=== PATIENT | female | born 1970 | race Caucasian/White ===

== ENCOUNTER 2017-12-06 15:37 | Observation (INO) | payer OTHER ==
--- OUTSIDE RECORDS SUMMARY | 2017-12-06 16:05 | XMS REPORT | Clinical Summary ---
:1970 Author Organization [facility] Address [address] [place] [address] Care Team Providers Name Role Phone Carl Celis MD Primary Care Provider Allergies Not on File Current Medications Prescription Sig. Disp. Refills Start Date End Date Status levothyroxine Take 88 mcg Active (SYNTHROID, LEVOXYL) by mouth 88 mcg tablet every morning. venlafaxine Take 75 mg Active (EFFEXOR) 75 MG by mouth 2 tablet (two) times a day. lansoprazole Take 15 mg Active (PREVACID) 15 MG by mouth capsule daily. sulfaSALAzine TAKE 1 120 tablet 0 11/21/2017 12/21/2017 Active (AZULFIDINE) 500 mg TABLET(500 tablet MG) BY MOUTH FOUR TIMES DAILY sulfaSALAzine TAKE 1 120 tablet 0 11/13/2016 12/11/2016 Discontinued (AZULFIDINE) 500 mg TABLET(500 tablet MG) BY MOUTH FOUR TIMES DAILY sulfaSALAzine TAKE 1 120 tablet 0 12/13/2016 01/20/2017 Discontinued (AZULFIDINE) 500 mg TABLET(500 tablet MG) BY MOUTH FOUR TIMES DAILY sulfaSALAzine TAKE 1 120 tablet 0 01/20/2017 02/20/2017 Discontinued (AZULFIDINE) 500 mg TABLET(500 tablet MG) BY MOUTH FOUR TIMES DAILY sulfaSALAzine TAKE 1 120 tablet 0 02/20/2017 09/27/2017 Discontinued (AZULFIDINE) 500 mg TABLET(500 tablet MG) BY MOUTH FOUR TIMES DAILY sulfaSALAzine TAKE 1 120 tablet 0 09/27/2017 10/23/2017 Discontinued (AZULFIDINE) 500 mg TABLET(500 tablet MG) BY MOUTH FOUR TIMES DAILY sulfaSALAzine TAKE 1 120 tablet 0 10/24/2017 11/21/2017 Discontinued (AZULFIDINE) 500 mg TABLET(500 tablet MG) BY MOUTH FOUR TIMES DAILY Active Problems Not on file Encounters Date Type Specialty Care Team Description 11/21/2017 Refill Gastroenterology Chandler Syed MD 10/23/2017 Refill Gastroenterology Chandler Syed MD 09/27/2017 Refill GastroenterChandler Martinez MD 02/20/2017 Refill GastroenterChandler Martinez MD 01/20/2017 Refill Gastroenterology Chandler Syed MD 12/11/2016 Refill Gastroenterology Chandler Syed MD after 12/05/2016 Family History Medical History Relation Name Comments Ulcerative colitis Father Colon cancer Paternal Grandfather Relation Name Status Comments Father Paternal Grandfather Social History Tobacco Use Types Packs/Day Years Used Date Never Smoker Alcohol Use Drinks/Week oz/Week Comments Defer Sex Assigned at Date Recorded Not on file Last Filed Vital Signs Not on file Plan of Treatment Health Maintenance Due Date Last Done Comments CERVICAL CANCER SCREENING 10/09/1991 INFLUENZA VACCINE 10/04/2017 Results Not on fileafter 12/05/2016 Insurance Payer Benefit Plan / Group Subscriber ID Type Phone Address HUMANA HUMANA HMO/POS/EPO/OPEN ACCESS xxxxxxxxx HMO Home: [id number] [facility] [facility] [phone] [place], [facility] [id number]
[2017-12-06] MEDS ORDERED: ONDANSETRON 4 MG/2 ML VIAL IV PRN (16:22)
--- NOTE | 2017-12-06 16:36 | P.HP ---
Certification for Inpatient Patient admitted to: Observation With expected LOS: <2 Midnights Patient will require the following post-hospital care: None Practitioner: I am a practitioner with admitting privileges, knowledge of patient current condition, hospital course, and medical plan of care. Services: Services provided to patient in accordance with Admission requirements found in Title 42 Section 412.3 of the Code of Federal Regulations Patient History Date of Service: 12/06/17 Primary Care Provider: Dr. Celis; GI-Dr. Singh Reason for admission: Fatigue, shortness of breath, rectal bleeding History of Present Illness: 47-year-old female presented as a direct admit from PCP office due to fatigue, rectal bleeding, shortness of breath and abnormal lab. Patient had lab drawn recently. Hemoglobin was low at 7.1. Patient went to the office of the PCP today. Patient was noticing rectal bleeding over the last several days. Patient has history of ulcerative colitis. Patient takes medication. She is primarily seen by GI in [place]. She denies any melena. Patient reports fatigue, shortness of breath and headaches. Patient has been transfused in the past. Patient was admitted for transfusion. Patient does not smoke. She drinks alcohol on occasion. Other medical problems include depression and hypothyroidism. Allergies No Known Allergies Allergy (Verified 12/06/17 16:23) Home medications list reviewed: Yes Home Medications: Levothyroxine [Synthroid] 88 mcg PO [id number] 12/06/17 Venlafaxine HCl [Venlafaxine HCl ER] 75 mg PO DAILY 12/06/17 sulfaSALAzine [Sulfasalazine] 500 mg PO DAILY 12/06/17 - Past Medical/Surgical History Diabetic: No -: Hypothyroidism -: Ulcerative colitis -: Depression -: Hysterectomy -: Left benign breast nodule Psychosocial/ Personal History: Patient is . 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 - Family History Father -: Other (see notes) (Ulcerative colitis with grandfather with history of colon cancer) Mother -: Other (see notes) (Rheumatoid arthritis) - Social History Smoking Status: Never smoker Alcohol use: Yes CD- Drugs: No Caffeine use: Yes Place of Residence: Home Review of Systems General: Weakness, Malaise Eyes: Unremarkable ENT: Unremarkable Respiratory: Shortness of Breath, As per HPI Cardiovascular: Light Headedness, As per HPI Gastrointestinal: Abdominal Pain, Hematochezia, As per HPI Genitourinary: Unremarkable Musculoskeletal: Unremarkable Integumentary: Unremarkable Neurological: Weakness, As per HPI Lymphatics: Unremarkable Physical Examination - Physical Exam General: Alert, In no apparent distress, Oriented x3, Cooperative HEENT: Atraumatic, Normocephalic, PERRLA, Mucous membr. moist/pink Neck: Supple, No Thyromegaly Respiratory: Clear to auscultation bilaterally Cardiovascular: Normal pulses, Regular rate/rhythm Gastrointestinal: Normal bowel sounds, Soft and benign, Non-distended, No tenderness, No masses, No rebound, No guarding Musculoskeletal: No erythema, No tenderness, No warmth Integumentary: No tenderness/swelling, No erythema, No warmth, No cyanosis Neurological: Normal speech, Normal strength at 5/5 x4 extr, Normal tone, Normal affect Assessment and Plan - Plan Impression: Fatigue, shortness of breath and rectal bleeding secondary to acute anemia with mild flare up of ulcerative colitis Hypothyroidism Depression Plan: Fatigue, shortness of breath and rectal bleeding secondary to acute anemia with mild flare up of ulcerative colitis: Recent lab shows hemoglobin of 7.1 as per PCP. Will recheck hemoglobin. Will type and cross for 2 units of blood. Patient will require 2 units. Will maintain hemoglobin above 8.0. Patient with history of ulcerative colitis. Will increase sulfasalazine to 3 times a day. Will monitor rectal bleeding. Will reassess after transfusion. Patient seen by GI up in [place]. Last colonoscopy 1 year ago. Anticipate discharge within the next 24 hr. Hypothyroidism: Will check tsh. Will restart home medication. Depression: Will continue with her medication. Discharge Plan: Home Plan to discharge in: 24 Hours - Advance Directives Does patient have a Living Will: No Does patient have a Durable POA for Healthcare: No - Code Status/Comfort Care Code Status Assessed: Yes (Patient is full code) Time Spent Managing Pts Care (In Minutes): 55
[2017-12-06 16:59] LABS: Absolute Lymphocytes (CBC) 2.1 K/uL (0.7-4.9); Absolute Monocytes 0.9 K/uL (0.1-1.3); Absolute Neutrophil 3.3 K/uL (1.8-8.0); Basophils % 1.8 % (0-1.3); Eosinophils % 6.8 % (0-4.4); Lymphocytes % 30.1 % (15.3-44.8); MCH 19.2 pg (27.0-35.0); MCV 67.4 fL (80-100); MPV 8.4 fL (7.6-11.3); Monocytes % 13.4 % (3.3-12.3); RBC Red Blood Cell Count 3.89 M/uL (3.86-4.86)
[2017-12-06 17:08] VITALS: BMI 22.6
[2017-12-06 17:28] LABS: Magnesium 2.7 mg/dL (1.8-2.4); Potassium 4.2 mmol/L (3.5-5.1); Thyroid Stimulating Hormone 1.67 uIU/mL (0.360-3.740)
[2017-12-06 17:41] LABS: Hematocrit 23.2 % (36.0-45.0)
[2017-12-06 17:42] LABS: Anisocytosis 1+; Blood Morphology Comment NOTED (NOT SEEN); Hypochromasia 2+; Platelet Estimate ADEQ
--- NOTE | 2017-12-06 17:50 | RAD REPORT ---
EXAM DESCRIPTION: Inna Trevino (2 Views)12/06/2017 5:30 pm CLINICAL HISTORY: sob COMPARISON: None FINDINGS: The lungs are mildly to moderately hyperaerated. The lungs appear clear of acute infiltrate. The heart is normal size IMPRESSION: No acute abnormalities displayed
[2017-12-06] MEDS: PANTOPRAZOLE 40MG TABLET PO SCH (18:40)
[2017-12-06 19:41] LABS: Urine Appearance CLEAR; Urine Bilirubin NEGATIVE (NEG); Urine Blood NEGATIVE (NEG); Urine Color YELLOW; Urine Glucose NEGATIVE (NEG); Urine Protein NEGATIVE (NEG); Urine Specific Gravity 1.015 (1.005-1.030); Urine Urobilinogen 0.2 mg/dL (0.2-1.0)
[2017-12-06 19:54] LABS: Urine Microscopic Reflex NO UMIC
[2017-12-06] MEDS ORDERED: NA CHLORIDE 0.9% 100 ML ONE (20:59)
[2017-12-06] MEDS: SULFASALAZINE 500 MG E.C. TAB PO SCH (21:20)
[2017-12-06] MEDS: ACETAMINOPHEN 500 MG TAB PO PRN (22:30)
[2017-12-06] MEDS: FUROSEMIDE 20 MG/ 2ML VIAL IV SCH (23:32)
[2017-12-07] MEDS ORDERED: NA CHLORIDE 0.9% 250 ML ONE (00:29)
[2017-12-07] MEDS: FUROSEMIDE 20 MG/ 2ML VIAL IV SCH (03:03)
[2017-12-07] MEDS: ACETAMINOPHEN 500 MG TAB PO PRN ×2 (05:18→08:55)
[2017-12-07 05:56] LABS: Absolute Lymphocytes (CBC) 2.7 K/uL (0.7-4.9); Absolute Neutrophil 1.9 K/uL (1.8-8.0); Basophils % 1.6 % (0-1.3); Eosinophils % 10.4 % (0-4.4); Hematocrit 33.4 % (36.0-45.0); Lymphocytes % 42.8 % (15.3-44.8); MCH 21.9 pg (27.0-35.0); MCV 69.8 fL (80-100); MPV 8.7 fL (7.6-11.3); Monocytes % 15.4 % (3.3-12.3); RBC Red Blood Cell Count 4.78 M/uL (3.86-4.86)
[2017-12-07] MEDS ORDERED: LEVOTHYROXINE SOD 0.088 MG TAB PO SCH (06:00)
[2017-12-07 06:08] LABS: Hematocrit 33.8 % (36.0-45.0)
[2017-12-07 08:44] VITALS: BP 121/76; TEMP 98.1
--- NOTE | 2017-12-07 08:51 | P.DS ---
Admission Date: 12/06/17 Discharge Date: 12/07/17 Primary Care Provider: Dr. Celis; GI-Dr. Singh Disposition: ROUTINE DISCHARGE Discharge Condition: GOOD Reason for Admission: Fatigue, shortness of breath, rectal bleeding Consultations: None Procedures: Medical problem list: Fatigue, shortness of breath and rectal bleeding secondary to acute anemia with flare up of ulcerative colitis Hypothyroidism Depression Brief History of Present Illness: 47-year-old female presented as a direct admit from PCP office due to fatigue, rectal bleeding, shortness of breath and abnormal lab. Patient had lab drawn recently. Hemoglobin was low at 7.1. Patient went to the office of the PCP today. Patient was noticing rectal bleeding over the last several days. Patient has history of ulcerative colitis. Patient takes medication. She is primarily seen by GI in [place]. She denies any melena. Patient reports fatigue, shortness of breath and headaches. Patient has been transfused in the past. Patient was admitted for transfusion. Patient does not smoke. She drinks alcohol on occasion. Other medical problems include depression and hypothyroidism. Hospital Course: Patient was direct admitted due to increasing fatigue, shortness of breath and rectal bleeding secondary to flare up of ulcerative colitis with noted acute anemia. Hemoglobin initially 7.5. Due to rectal bleeding and symptoms, patient was given 2 units of packed red blood cells. Patient did well during the course of her stay. No further rectal bleeding was identified. Patient had minimal to no abdominal pain. Patient has had a flare ups of her ulcerative colitis in the past. Patient was given Sulfasalzine during her stay. Hemoglobin at discharge 11.0. At discharge, she will continue with sulfasalazine 500 mg 4 pills 3 times a day for the next couple of days. Then she is to decrease to her daily dosage. Recommendation is to follow up with her GI specialist to further address and monitor. Recommendation is to follow up with her PCP to recheck lab-CBC in 1 week to monitor progress. She is to monitor for further pain and bleeding. Patient has hypothyroidism. She will continue with her medication Levoxyl 88 mcg daily. Patient has depression. She will continue with the Effexor XR 75 mg daily. Vital Signs/Physical Exam: Temp Pulse Resp BP Pulse Ox 97.8 F 75 18 117/79 99 12/07/17 04:00 12/07/17 04:00 12/07/17 04:00 12/07/17 04:00 12/07/17 04:00 General: Alert, In no apparent distress, Oriented x3, Cooperative HEENT: Atraumatic, Mucous membr. moist/pink Neck: Supple, No Thyromegaly Respiratory: Clear to auscultation bilaterally, Normal air movement Cardiovascular: Normal pulses, Regular rate/rhythm Gastrointestinal: Normal bowel sounds, Soft and benign, Non-distended, No tenderness, No masses, No rebound, No guarding Musculoskeletal: No erythema, No tenderness, No warmth Integumentary: No tenderness/swelling, No erythema, No warmth, No cyanosis Neurological: Normal speech, Normal strength at 5/5 x4 extr, Normal tone, Normal affect Laboratory Data at Discharge: WBC 6.4 K/uL (4.3-10.9) 12/07/17 04:53 Hgb 11.0 g/dL (12.0-15.0) L 12/07/17 05:40 Hct 33.8 % (36.0-45.0) L 12/07/17 05:40 Plt Count 400 K/uL (152-406) 12/07/17 04:53 Sodium 141 mmol/L (136-145) 12/06/17 16:33 Potassium 4.2 mmol/L (3.5-5.1) 12/06/17 16:33 BUN 10 mg/dL (7-18) 12/06/17 16:33 Creatinine 0.80 mg/dL (0.55-1.3) 12/06/17 16:33 Glucose 76 mg/dL (74-106) 12/06/17 16:33 Magnesium 2.7 mg/dL (1.8-2.4) H 12/06/17 16:33 Home Medications: Levothyroxine [Synthroid*] 88 mcg PO [id number] 12/06/17 Venlafaxine HCl [Venlafaxine HCl ER] 75 mg PO DAILY 12/06/17 sulfaSALAzine [Sulfasalazine] 2,000 mg PO DAILY 12/06/17 Patient Discharge Instructions: 1. Patient will need to follow up with her PCP in 1 week to follow up this hospitalization. 2. Patient was direct admitted due to increasing fatigue, shortness of breath and rectal bleeding secondary to flare up of ulcerative colitis with noted acute anemia. Hemoglobin initially 7.5. Due to rectal bleeding and symptoms, patient was given 2 units of packed red blood cells. Patient did well during the course of her stay. No further rectal bleeding was identified. Hemoglobin at discharge 11.0. At discharge, she will continue with sulfasalazine 500 mg 4 pills 3 times a day for the next couple of days. Then she is to decrease to her daily dosage. Recommendation is to follow up with her GI specialist to further address and monitor. Recommendation is to follow up with her PCP to recheck lab-CBC in 1 week to monitor progress. She is to monitor for further pain and bleeding. 3. Patient has hypothyroidism. She will continue with her medication Levoxyl 88 mcg daily. 4. Patient has depression. She will continue with the Effexor XR 75 mg daily. Diet: Soft GI Activity: Ad jose Time spent managing pt's care (in minutes): 55
[2017-12-07] MEDS: PANTOPRAZOLE 40MG TABLET PO SCH (08:52)
[2017-12-07] MEDS: SULFASALAZINE 500 MG E.C. TAB PO SCH (08:53)
[2017-12-07] MEDS ORDERED: VENLAFAXINE HCL XR 75 MG CAP PO SCH (09:00)
[2017-12-07 09:40] VITALS: O2SAT 96
== END 2017-12-07 11:12 | disposition home or self-care (01) ==
LOC: 4TH 16:03
PROVIDERS: ADMIT Family Medicine; ATTEND Family Medicine
PROC: 30233N1 Transfusion of Nonautologous Red Blood Cells into Peripheral Vein, Percutaneous Approach (ICD-10-PCS; principal; 2017-12-06)
DX: K51.911 Ulcerative colitis, unspecified with rectal bleeding (principal); D64.9 Anemia, unspecified; F32.9 Major depressive disorder, single episode, unspecified; E03.9 Hypothyroidism, unspecified
CPT/HCPCS: 36415; 71046; 80048; 81003; 83735; 84439; 84443; 85014; 85018; 85025; 86850; 86900; 86901; G0378; J1940; P9016